=== PATIENT | female | born 1970 | race Caucasian/White ===

== ENCOUNTER 2017-05-19 20:06 | Emergency (ER) | payer SELFPAY ==
[2017-05-19 20:16] VITALS: BMI 31.4
--- NOTE | 2017-05-19 21:26 | DR.GENAD ---
HPI - PCP Primary Care Physician: NFD - HPI Comment HPI Comment: PAIN ASSOCIATED WITH WEAKNESS AND NEAR SYNCOPAL FEELING. SIMILAR SYMTOMS IN PAST. [employer] HAD HER ON METOPROLOL. MOVE AND HAVE NOT SEEN NEW DOCTOR FOR SEVERAL MONTHS. THE SYMTOMS TODAY WERE WORSE THAN NORMAL. NO FEVER OR URI SYMTOMS. - Complaint/Symptoms Chief Complaint Doctors Comments: IRREGULAR HEART RATE AND HEADACHE TIMES SEVERAL HOURS. Chief Complaint:: HEART PALPITATIONS, HEADACHE SINCE 16:30, AND SOB - Nurses notes reviewed Nurses Notes Review: Yes - Source History Provided: Patient, Family Member - Mode of Arrival Mode of Arrival: Ambulatory - Timing Onset of Chief Complaint: 05/19/17 Came on: Suddenly - Duration Duration: Since Onset Duration: Hours - Severity Severity: Moderate PMH - PMH Past Medical History: Yes Past Medical History Comment: HX OF HEART PALPATATIONS Past Surgical History: Yes Surgical History: Appendectomy, Cholecystectomy, Hysterectomy, Joint Replacement Past Surgical History Comment: RETINA SURGERY (RIGHT EYE) - Family History History of Family Medical Conditions: Yes Family Medical History: Diabetes Mellitus, Cancer, Hypertension Family Medical History Comment: CHF - Social History Does patient currently use any type of tobacco product: No Alcohol Use: Occasionally Do you use any recreational Drugs:: No Lives Where: Home - infectious screening In the last 2 months have you had wt loss of >10#?: NO Have you had fever, night sweats or hemotysis?: No Have you traveled outside the country in the last 6 months?: No ROS - Review of Systems Constitutional: Weakness, Fatigue. negative: Chills, Fever Eyes: No Symptoms Reported ENTM: No Symptoms Reported Respiratoy: No Symptoms Reported Cardiovascular: No Symptoms Reported Gastrointestinal/Abdominal: No Symptoms Reported Genitourinary: No Symptoms Reported Neurological: Headache, Weakness Musculoskeletal: No Symptoms Reported Integumentary: No Symptoms Reported Hematologic/Lymphatic: No Symptoms Reported Endocrine: No Symptoms Reported All Other Systems: Reviewed and Negative PE - Vital Signs Vitals: Temperature 98.3 F Pulse Rate [Right Radial] 86 Pulse Rate 98 Respiratory Rate 18 Blood Pressure [Right Arm] 143/98 Blood Pressure 136/88 O2 Sat by Pulse Oximetry 98 - General Limitations: No Limitations General Appearance: Alert - Head Head Exam: Normal Inspection - Eyes Eye exam: Normal Appearance - ENT ENT Exam: Normal External Ear Exam External Ear Exam: Normal External Inspection TM/Canal Exam: Bilateral Normal Nose Exam: Normal Nose Exam Mouth Exam: Normal Inspection Throat Exam: Normal Inspection - Neck Neck Exam: Trachea Midline. negative: Tenderness, Meningismus, Lymphadenopathy - Chest Chest Inspection: Symmetric Chest Wall Rise - Respiratory Respiratory Exam: Normal Lung Sounds Bilat Respiratory Exam: Bilateral Clear to Auscultation - Cardiovascular Cardiovascular Exam: Regular Rate, Normal Rhythm, Normal Heart Sounds - Abdominal Exam Abdominal Exam: Normal Bowel Sounds, Soft. negative: Tenderness - Extremities Extremities Exam: Normal Inspection - Back Back Exam: Normal Inspection - Neurologic Neurological Exam: Alert, Oriented X3, CN II-XII Intact, Normal Gait, Reflexes Normal. negative: Motor Sensory Deficit - Psychiatric Psychiatric Exam: Normal Affect, Normal Mood - Skin Skin Exam: Normal Color MDM - Additional Information Additional Information Obtained From: Family - Differential Diagnosis Differential Diagnosis: ARRHYTHMIA, HEADCHE, CHEST PAIN, NEAR SYNCOPE Course - Treatment Treatment: SEE ORDERS. IM TORADOL IN ED. HEADACHE IMPROVED. - Reevaluation 1st: Improved - Education/Counseling Education/Counseling: Patient, Family, Education Educated On: Treatment, Diagnosis, Needs for Follow Up ROR - Labs Reviewed Laboratory Results Reviewed?: Yes Result Diagrams: 05/19/17 21:35 05/19/17 21:35 Laboratory: WBC 5.6 X10^3/uL (3.6-10.0) 05/19/17 21:35 RBC 5.00 X10^6/uL (3.5-5.4) 05/19/17 21:35 Hgb 14.4 g/dL (12.0-16.0) 05/19/17 21:35 Hct 42.2 % (36.0-47.0) 05/19/17 21:35 MCV 84.3 fL (80.0-100.0) 05/19/17 21:35 MCH 28.8 pg (27.0-34.0) 05/19/17 21:35 MCHC 34.2 g/dL (33.0-35.0) 05/19/17 21:35 RDW 13.5 % (11.6-16.5) 05/19/17 21:35 Plt Count 168 X10^3/uL (150.0-450.0) 05/19/17 21:35 MPV 9.5 fL (7.4-11.0) 05/19/17 21:35 Neut % 52.4 % (42.0-75.0) 05/19/17 21:35 Lymph % 37.7 % (21.0-51.0) 05/19/17 21:35 [place] % 7.5 % (0.0-13.0) 05/19/17 21:35 Eos % 1.2 % (0.9-2.9) 05/19/17 21:35 Baso % 1.2 % (0.2-1.0) H 05/19/17 21:35 Neut # 2.9 x10^3/uL (2.2-4.8) 05/19/17 21:35 Lymph # 2.1 X10^3/uL (1.3-2.9) 05/19/17 21:35 [place] # 0.4 x10^3/uL (0.3-0.8) 05/19/17 21:35 Eos # 0.1 x10^3/uL (0.0-0.2) 05/19/17 21:35 Baso # 0.1 X10^3/uL (0.0-0.1) 05/19/17 21:35 Absolute Nucleated RBC 0.0 /100WBC 05/19/17 21:35 Sodium 142 mmol/L (136-145) 05/19/17 21:35 Corrected Sodium TNP 05/19/17 21:35 Potassium 3.1 mmol/L (3.5-5.1) L 05/19/17 21:35 Chloride 105 mmol/L (98-107) 05/19/17 21:35 Carbon Dioxide 27.7 mmol/L (21-32) 05/19/17 21:35 BUN 7 mg/dL (7-18) 05/19/17 21:35 Creatinine 0.94 mg/dL (0.55-1.02) 05/19/17 21:35 Est GFR (MDRD) Af Amer > 60 (>60) 05/19/17 21:35 Est GFR (MDRD) Non-Af > 60 (>60) 05/19/17 21:35 Glucose 94 mg/dL (65-99) 05/19/17 21:35 Calcium 9.2 mg/dL (8.5-10.1) 05/19/17 21:35 Corrected Calcium TNP 05/19/17 21:35 Total Bilirubin 0.40 mg/dL (0.2-1.0) 05/19/17 21:35 AST 19 Units/L (15-37) 05/19/17 21:35 ALT 26 Units/L (12-78) 05/19/17 21:35 Alkaline Phosphatase 110 Units/L (46-116) 05/19/17 21:35 Creatine Kinase 67 Units/L (26-192) 05/19/17 21:35 CK-MB (CK-2) < 1.0 ng/mL (0-4.0) 05/19/17 21:35 CK/CKMB % Calc 1.5 % (<4) 05/19/17 21:35 Troponin I < 0.02 ng/mL (0-1.5) 05/19/17 21:35 Total Protein 7.7 g/dL (6.4-8.2) 05/19/17 21:35 Albumin 3.8 g/dL (3.4-5.0) 05/19/17 21:35 Globulin 3.9 g/dL (2.5-4.5) 05/19/17 21:35 Albumin/Globulin Ratio 1.0 Ratio (1.1-2.1) L 05/19/17 21:35 - XRAY XRAY Interpreted by: Radiologist XRAY Findings: REPORT DISCUSS WITH PATIENT. - EKG Rhythm: NSR - Diagnosis Discharge Problem: Arrhythmia Qualifiers: Arrhythmia type: unspecified cardiac arrhythmia Qualified Code(s): I49.9 - Cardiac arrhythmia, unspecified Headache Qualifiers: Headache type: unspecified Headache chronicity pattern: acute headache Intractability: intractable Qualified Code(s): R51 - Headache - Discharge Plan Condition: Stable Prescriptions: [id number] [Fioricet Tab] 1 tab PO Q8H PRN #15 tab PRN Reason: Migraine Headache - Follow ups/Referrals Follow ups/Referrals: DILLAN GILES [STAFF PHYSICIAN] - 2 days NFD,None [Primary Care Provider] - 2 days - Instructions Instructions: Premature Ventricular Contraction, Hypokalemia Additional Instructions: RETURN TO ED IF WORSE.
[2017-05-19 21:46] LABS: BASOPHILS # (AUTO) 0.1 X10^3/uL (0.0-0.1); BASOPHILS % (AUTO) 1.2 % (0.2-1.0); EOSINOPHILS # (AUTO) 0.1 x10^3/uL (0.0-0.2); EOSINOPHILS % (AUTO) 1.2 % (0.9-2.9); HEMATOCRIT 42.2 % (36.0-47.0); HEMOGLOBIN 14.4 g/dL (12.0-16.0); LYMPHOCYTES # (AUTO) 2.1 X10^3/uL (1.3-2.9); LYMPHOCYTES % (AUTO) 37.7 % (21.0-51.0); MEAN CORPUSCULAR HEMOGLOBIN 28.8 pg (27.0-34.0); MEAN CORPUSCULAR HGB CONC 34.2 g/dL (33.0-35.0); MEAN CORPUSCULAR VOLUME 84.3 fL (80.0-100.0); MEAN PLATELET VOLUME 9.5 fL (7.4-11.0); MONOCYTES # (AUTO) 0.4 x10^3/uL (0.3-0.8); MONOCYTES % (AUTO) 7.5 % (0.0-13.0); NEUTROPHILS # (AUTO) 2.9 x10^3/uL (2.2-4.8); NEUTROPHILS % (AUTO) 52.4 % (42.0-75.0); PLATELET COUNT 168 X10^3/uL (150.0-450.0); RED CELL DISTRIBUTION WIDTH 13.5 % (11.6-16.5); WHITE BLOOD COUNT 5.6 X10^3/uL (3.6-10.0)
--- NOTE | 2017-05-19 21:57 | RAD ---
Chest, one-view Indication: Heart palpitations Comparison: None Findings: The heart size is normal. No focal consolidation, effusion or pneumothorax is identified. O sseous thorax is unremarkable. Impression: No acute cardiopulmonary abnormality. Reported By:
[2017-05-19 22:02] LABS: BLOOD UREA NITROGEN 7 mg/dL (7-18); CALCIUM 9.2 mg/dL (8.5-10.1); CARBON DIOXIDE 27.7 mmol/L (21-32); CHLORIDE 105 mmol/L (98-107); CREATININE 0.94 mg/dL (0.55-1.02); SODIUM 142 mmol/L (136-145); TROPONIN I < 0.02 ng/mL (0-1.5); eGFR BLACK RACES > 60 (>60); eGFR NON BLACK RACES > 60 (>60)
[2017-05-19 22:07] LABS: ALANINE AMINOTRANSFERASE 26 Units/L (12-78); ALBUMIN 3.8 g/dL (3.4-5.0); ALKALINE PHOSPHATASE 110 Units/L (46-116); ASPARTATE AMINO TRANSFERASE 19 Units/L (15-37); CKMB % 1.5 % (<4); CREATINE KINASE 67 Units/L (26-192); CREATINE KINASE MB < 1.0 ng/mL (0-4.0); TOTAL PROTEIN 7.7 g/dL (6.4-8.2)
[2017-05-19] MEDS ORDERED: K-LYTE EFFERVESCENT ONE (22:16)
[2017-05-19] MEDS ORDERED: TORADOL 60 MG VIAL IM ONE (22:21)
[2017-05-19] MEDS ORDERED: TORADOL 60 MG VIAL ONE (22:23)
[2017-05-19] MEDS ORDERED: K-LYTE EFFERVESCENT PO SCH (23:00)
[2017-05-19 23:15] VITALS: BP 143/98
== END 2017-05-19 23:15 | disposition home or self-care (01) ==
LOC: ER 20:22
DX: I49.9 Cardiac arrhythmia, unspecified (principal); R51 Headache
CPT/HCPCS: 36415; 71010; 80053; 82550; 82553; 84484; 85025; 93005; 93010; 96372; 99283; 99285; J1885